=== PATIENT | female | born 1990 | race African-American/Black ===

== ENCOUNTER 2018-08-17 14:17 | Emergency (ER) | payer OTHER ==
[~2018-08-17] VITALS: Ht 162.6 cm; Wt 114.3 kg
[2018-08-17 14:20] VITALS: BP 161/89
--- NOTE | 2018-08-17 14:30 | PHYS DOC ---
Past Medical History Past Medical History: No Pertinent History Past Surgical History: Other Additional Past Surgical Histo: LAP BAN Alcohol Use: None Drug Use: None Adult General Chief Complaint Chief Complaint: SKIN PROBLEM HPI HPI Patient is a 28 year old F who presents with diffuse hives and itching since she awoke this morning. She denies any known exposures to new medicines, products, etc. She states she had hives once prior when she had strep throat but that she does not have a sore throat or feel ill in any way today. Pt has taken benadryl and taken a cool shower. Review of Systems Review of Systems Constitutional: Denies fever or chills HENT: Denies nasal congestion or sore throat. Denies throat or tongue swelling. Respiratory: Denies cough or shortness of breath Cardiovascular: Denies chest pain. GI: Denies abdominal pain, nausea, vomiting, bloody stools or diarrhea Musculoskeletal: Denies back pain or joint pain Integument: Reports hives and itching. Neurologic: Denies headache, focal weakness or sensory changes All other systems were reviewed and found to be within normal limits, except as documented in this note. Current Medications Current Medications Current Medications Medications (Trade) Dose Ordered Sig/Ismael Start Time Stop Time Status Last Admin Dose Admin Methylprednisolone Sodium Succinate (SOLU-Medrol 125MG VIAL) 125 mg 1X ONCE 08/17/18 14:30 08/17/18 14:31 DC 08/17/18 14:48 125 MG Allergies Allergies Allergies Coded Allergies Type Severity Reaction Last Updated Verified No Known Drug Allergies 04/11/14 No Physical Exam Physical Exam Constitutional: Well developed, well nourished, no acute distress, non-toxic appearance. HENT: Normocephalic, atraumatic, bilateral external ears normal, oropharynx moist, no oral exudates, nose normal. Airway patent, no edema noted. Eyes: PERRLA, EOMI, conjunctiva normal, no discharge. Neck: Normal range of motion, no tenderness, supple, no stridor. Cardiovascular:Heart rate regular rhythm, no murmur Lungs & Thorax: Bilateral breath sounds clear to auscultation Abdomen: Bowel sounds normal, soft, no tenderness, no masses, no pulsatile masses. Skin: Warm, dry, dark skinned female with erythematous raised plaques on arms, back and legs consistent with urticaria. Back: No tenderness, no CVA tenderness. Extremities: No tenderness, no cyanosis, no clubbing, ROM intact, no edema. Neurologic: Alert and oriented X 3, normal motor function, normal sensory function, no focal deficits noted. Psychologic: Affect normal, judgement normal, mood normal. Current Patient Data Vital Signs Vital Signs Date Time Temp Pulse Resp B/P (MAP) Pulse Ox O2 Delivery O2 Flow Rate FiO2 08/17/18 14:20 99.3 116 20 161/89 (113) 98 Room Air 99.3 EKG EKG [] Radiology/Procedures Radiology/Procedures [] Course & Med Decision Making Course & Med Decision Making Pertinent Labs and Imaging studies reviewed. (See chart for details) Pt will be given shot of IM solumedrol and then oral steroids for next few days along with antihistamines. Encouraged pt to return if symptoms worsen at anytime. lisa: i was working in the ED at the time of this visit. i was available for consulation at all times in the ED, i was not directly involved in the care of this patient. Dragon Disclaimer Dragon Disclaimer This electronic medical record was generated, in whole or in part, using a voice recognition dictation system. Departure Departure Impression: Primary Impression: Urticaria Disposition: HOME, SELF-CARE Condition: STABLE Referrals: NO PCP (PCP) NATASHA RING MD Patient Instructions: Hives, [id number] Scripts Prednisone (PREDNISONE) 20 Mg Tablet 1 TAB PO BID, #10 TAB Prov: EMILY REYEZ 08/17/18 EMILY REYEZ Aug 17, 2018 14:30 STACY GERMAN MD Aug 17, 2018 16:50
[2018-08-17] MEDS ORDERED: PRED20TA PO (14:32)
[2018-08-17] MEDS: methylPREDNISolone SOD SUCC PF 125 MG/2 ML VIAL. IM ONE (14:48)
== END 2018-08-17 15:00 | disposition home or self-care (01) ==
LOC: ER 14:17
DX: L50.9 Urticaria, unspecified (principal)
CPT/HCPCS: 96372; 99283; J2930